=== PATIENT | female | born 1995 | race Caucasian/White ===

== ENCOUNTER 2020-06-27 12:48 | Outpatient (REF) | payer MEDICAID, SELFPAY ==
--- NOTE | ~2020-06-27 | US_ITS ---
EXAMINATION:US pelvic complete, US transvaginal CLINICAL INFORMATION: Reason for Exam ABNORMAL UTERINE AND VAGINAL BLEEDING COMPARISON: No priors available. LMP: Irregular FINDINGS: UTERUS: The uterus is anteverted. Size: 9 x 3.3 x 3.9 cm. Uterine mass: There is no uterine mass. Cervix: Grossly unremarkable. Endometrium: No ultrasound evidence of endometrial lesion. endometrial thickness measures 0.5 ADNEXA: Normal Right ovary: Normal in size. Left ovary: Normal in size. Doppler exam: Normal Doppler flow identified in both ovaries. FREE FLUID: Trace amount of free fluid. OTHER FINDINGS: None US/US pelvic complete IMPRESSION: No ultrasound explanation for patient's symptoms, no fibroid or endometrial lesion found. Normal pelvic ultrasound.
--- NOTE | ~2020-06-27 | US_ITS ---
EXAMINATION:US pelvic complete, US transvaginal CLINICAL INFORMATION: Reason for Exam ABNORMAL UTERINE AND VAGINAL BLEEDING COMPARISON: No priors available. LMP: Irregular FINDINGS: UTERUS: The uterus is anteverted. Size: 9 x 3.3 x 3.9 cm. Uterine mass: There is no uterine mass. Cervix: Grossly unremarkable. Endometrium: No ultrasound evidence of endometrial lesion. endometrial thickness measures 0.5 ADNEXA: Normal Right ovary: Normal in size. Left ovary: Normal in size. Doppler exam: Normal Doppler flow identified in both ovaries. FREE FLUID: Trace amount of free fluid. OTHER FINDINGS: None US/US transvaginal IMPRESSION: No ultrasound explanation for patient's symptoms, no fibroid or endometrial lesion found. Normal pelvic ultrasound.
== END 2020-06-27 12:49 | disposition home or self-care (01) ==
LOC: HO.US 12:48
PROVIDERS: Visit Provider Nurse Practitioner Family
DX: N93.9 Abnormal uterine and vaginal bleeding, unspecified (principal)
CPT/HCPCS: 76830; 76856

== ENCOUNTER 2023-06-24 08:02 | Outpatient (REF) | payer MEDICAID, SELFPAY ==
[2023-06-24 11:35] LABS: Hematocrit 38.7 % (37.0-47.0); Hemoglobin 12.6 g/dl (12.0-16.0); Mean Corpuscular HGB Conc 32.6 g/dl (31.0-35.0); Mean Corpuscular Hemoglobin 29.7 pg (27.0-33.0); Mean Corpuscular Volume 91.3 fL (80.0-98.0); Mean Platelet Volume 11.3 fL (9.4-12.3); Platelet Count 258 X10*3/uL (160-400); Red Blood Count 4.24 X10*6/uL (4.20-5.50); Red Cell Distribution Width 11.5 % (11.0-16.0); White Blood Count 5.4 X10*3/uL (4.8-10.8)
[2023-06-24 11:47] LABS: Estimated Average Glucose 91 mg/dL; Hemoglobin A1c % 4.8 % (<6.0)
[2023-06-24 11:54] LABS: Alanine Aminotransferase 11 U/L (0-31); Albumin Level 4.2 g/dL (3.5-5.0); Alkaline Phosphatase 67 U/L (39-117); Anion Gap 8 (12-20); Aspartate Amino Transferase 13 U/L (5-31); Bilirubin Total 0.3 mg/dL (0.0-1.0); Blood Urea Nitrogen 10 mg/dL (9-16); Calcium 9.6 mg/dL (8.4-10.2); Carbon Dioxide 29 mmol/L (22-29); Chloride 106 mmol/L (96-108); Cholesterol 140 mg/dL (<200); Estimated Glomerular Filt Rate > 60; Glucose Random 84 mg/dL (60-115); HDL Cholesterol 40 mg/dL (>40); LDL Cholesterol Calculated 91 mg/dL (<100); Potassium 4.2 mmol/L (3.3-5.1); Sodium 139 mmol/L (135-145); Triglycerides 46 mg/dL (<150)
[2023-06-24 12:10] LABS: HBS Num1 95.45 mIU/mL (0-7.99); HBc Num1 0.13 S/CO (0.00-0.79); HIV AB/AG Nonreactive (Nonreactive); HIV Num 1 0.06 S/CO (0.00-0.99); Hepatitis B Core Antibody Nonreactive (Nonreactive); Hepatitis B Surface Antigen Negative (Negative); ~HepC Num1 0.16 S/CO (0.00-0.79); ~Hepatitis B Surface Antibody REACTIVE (Nonreactive); ~Hepatitis C Antibody Nonreactive (Nonreactive)
[2023-06-24 12:11] LABS: TSH reflex Free T4 1.41 uIU/mL (0.32-4.0); Vitamin D 25-OH Total 16.9 ng/mL (>30)
[2023-06-24 12:22] LABS: Syphilis Screen Nonreactive (Nonreactive)
[2023-06-24 14:46] LABS: CT PCR NOT DETECTED (Not Detect.); NG PCR NOT DETECTED (Not Detect.)
== END 2023-06-24 08:03 | disposition home or self-care (01) ==
LOC: HO.HHCL 08:02
PROVIDERS: Visit Provider Student in an Organized Health Care Education/Training Program
DX: Z00.00 Encounter for general adult medical examination without abnormal findings (principal)
CPT/HCPCS: 0353U; 36415; 80053; 80061; 82306; 83036; 84443; 85027; 86704; 86706; 86780; 86803; 87340; 87389

== ENCOUNTER 2023-06-28 11:23 | Outpatient (REF) | payer MEDICAID, SELFPAY ==
[2023-07-02 14:23] LABS: Testosterone, Total 37 ng/dL (2-45)
== END 2023-06-28 11:24 | disposition home or self-care (01) ==
LOC: HO.HHCL 11:23
PROVIDERS: Visit Provider Advanced Practice Midwife
DX: N93.9 Abnormal uterine and vaginal bleeding, unspecified (principal); L68.0 Hirsutism
CPT/HCPCS: 36415; 84403; 88142

== ENCOUNTER 2024-10-27 15:47 | Outpatient (REF) | payer BC, SELFPAY ==
--- OUTSIDE RECORDS SUMMARY | 2024-10-27 15:50 | XMS_ITS | Clinical Summary ---
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 Name Role Phone Unavailable Primary Care Provider Unavailabl e Social History Tobacco Use Types Packs/Day Years Used Date Smoking Tobacco: Never Assessed Comments Unknown Sex and Gender Information Value Date Recorded Sex Assigned at Not on file Legal Sex Female 9:16 AM EST Gender Identity Not on file Sexual Orientation Not on file Plan of Treatment Health Maintenance Due Date Last Done Comments DTaP,Tdap,and Td Vaccines (1 - Tdap) 2013 Hepatitis B Vaccines (1 of 3 - 19+ 3-dose series) 2013 Cervical Cancer Screening: P ap Smear 2015 HIV Screening 04/20/2023 Hepatitis C Screening 04/20/2023 Social Influencers of Health Screening 04/20/2023 COVID-19 Vaccine ( - 2023-2 5 season) 2023 Depression Screening 03/22/2024 Influenza Vaccine (#1) 2024 HIB Vaccines Aged Out No longer eligi ble based on patient's age to complete this topic HPV Vaccines Aged Out No longer eligi ble based on patient's age to complete this topic Hepatitis A Vaccines Aged Out No long er eligible based on patient's age to complete this topic IPV Vaccines Aged Out No longer eligi ble based on patient's age to complete this topic MMR Vaccines Aged Out No longer eligi ble based on patient's age to complete this topic Meningococcal ACWY Vaccine Aged Out N o longer eligible based on patient's age to complete this topic Meningococcal B Vaccine Aged Out No l onger eligible based on patient's age to complete this topic Pneumococcal Vaccine: Pediat rics (0 to 5 Years) and At-Risk Patients (6 to 49 Years) Aged Out No longer eligible b ased on patient's age to complete this topic RSV Immunization Patients Un dominick 20 months Aged Out No longer eligible b ased on patient's age to complete this topic Varicella Vaccines Aged Out No longer eligible based on patient's age to complete this topic
[2024-10-28 04:04] LABS: CT PCR Urine NOT DETECTED (Not Detect.); NG PCR Urine NOT DETECTED (Not Detect.)
[2024-10-28 11:09] LABS: C. Trachomatis RNA TMA, Throat NOT DETECTED (NOT DETECTED); N. gonorrhoeae RNA TMA, Throat NOT DETECTED (NOT DETECTED)
[2024-10-30 08:04] LABS: Syphilis Screen Nonreactive (Nonreactive)
[2024-10-30 08:23] LABS: HIV Num 1 0.06 S/CO (0.00-0.99); ~HepC Num1 0.17 S/CO (0.00-0.79); ~Hepatitis C Antibody Nonreactive (Nonreactive)
== END 2024-10-27 15:48 | disposition home or self-care (01) ==
LOC: HO.LAB 15:47
DX: Z11.3 Encounter for screening for infections with a predominantly sexual mode of transmission (principal); Z11.8 Encounter for screening for other infectious and parasitic diseases; J02.9 Acute pharyngitis, unspecified
CPT/HCPCS: 86780; 86803; 87389; 87491; 87591